=== PATIENT | male | born 1985 | race Caucasian/White ===

== ENCOUNTER 2020-12-31 11:13 | Emergency (ER) | payer OTHER ==
[~2020-12-31] VITALS: Ht 185.4 cm; Wt 100.0 kg
[2020-12-31 14:00] VITALS: BP 140/98
[2020-12-31] MEDS ORDERED: ipratropium/albuterol 3ml nebule NEB ONE (14:30)
[2020-12-31] MEDS ORDERED: ALBU8HFA PO (15:03)
== END 2020-12-31 15:34 | disposition home or self-care (01) ==
LOC: ER 11:13
DX: J45.909 Unspecified asthma, uncomplicated (principal); R06.02 Shortness of breath; R05 Cough; R07.89 Other chest pain; Z79.899 Other long term (current) drug therapy
CPT/HCPCS: 93005; 94640; 94760; 99283

== ENCOUNTER 2021-06-05 12:39 | Outpatient (CLI) | payer OTHER ==
[~2021-06-05] VITALS: Ht 180.3 cm; Wt 99.8 kg
[~2021-06-05 12:39] MED LIST: ALBU8HFA PO
[2021-06-05] MEDS ORDERED: albuterol 2.5 MG/3 ML nebule NEB ONE (13:15)
== END 2021-06-06 23:59 | disposition home or self-care (01) ==
LOC: RT 12:39
DX: R94.2 Abnormal results of pulmonary function studies (principal); R06.02 Shortness of breath
CPT/HCPCS: 71046; 94060; 94760